=== PATIENT | female | born 1995 | race Caucasian/White ===

== ENCOUNTER 2016-09-28 20:20 | Emergency (ER) | payer OTHER ==
[~2016-09-28] VITALS: Ht 152.4 cm; Wt 49.2 kg
[2016-09-28 21:52] VITALS: BP 101/87
== END 2016-09-28 21:52 | disposition home or self-care (01) ==
LOC: ED 20:20
DX: H72.92 Unspecified perforation of tympanic membrane, left ear (principal); R42 Dizziness and giddiness